=== PATIENT | female | born 1990 | race Caucasian/White ===

== ENCOUNTER 2018-06-27 21:30 | Emergency (ER) | payer MEDICAID ==
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
[2018-06-27] MEDS ORDERED: IBUPROFEN 600 MG TABLET PO STA (23:14)
--- NOTE | 2018-06-27 23:59 | XRAY Report ---
Reason: fall, pain, recent surgery Procedure Date: 06/27/2018 Accession Number: [id number] / [id number] Procedure: XR - Shoulder 3 View RT CPT Code: FULL RESULT: EXAM: RIGHT SHOULDER RADIOGRAPHY EXAM DATE: 06/27/2018 11:36 PM. CLINICAL HISTORY: Fall. Pain. Recent surgery. COMPARISON: None. TECHNIQUE: 3 views. FINDINGS: Bones: Normal. No fracture or bone lesion. Joints: The glenohumeral and acromioclavicular joints are normal. Soft tissues: The visualized hemithorax is unremarkable. No soft tissue calcification. IMPRESSION: Normal shoulder radiography. [facility]
[2018-06-28] MEDS ORDERED: traMADol 50 MG TABLET PO STA (00:35)
[2018-06-28 00:45] VITALS: BP 136/99
== END 2018-06-28 00:46 | disposition home or self-care (01) ==
LOC: ED 21:30
DX: S49.91XA Unspecified injury of right shoulder and upper arm, initial encounter (principal); W01.0XXA Fall on same level from slipping, tripping and stumbling without subsequent striking against object, initial encounter; Y92.009 Unspecified place in unspecified non-institutional (private) residence as the place of occurrence of the external cause; Z98.890 Other specified postprocedural states
CPT/HCPCS: 73030; 99283; A9270